=== PATIENT | male | born 1960 | race African-American/Black ===

== ENCOUNTER → 2016-11-21 | Outpatient (CLI) | payer OTHER ==
--- NOTE | 2016-11-22 02:03 | REP ---
Clinical: Left hip pain. Technique: AP and frog lateral views of the left hip. Findings: Advanced osteoarthritic degenerative changes include joint space narrowing, subchondral sclerosis/heterogeneity and cystic changes as well as marginal osteophyte formation involving both the proximal femur and iliac/acetabulum. No acute fracture dislocation. Impression: Advanced arthritic degenerative changes. Signed by Alex Villalpando MD 11/22/2016 01:54 A
== END ==
LOC: M RAD 09:51
PROVIDERS: ATTEND Surgery
DX: M16.12 Unilateral primary osteoarthritis, left hip (principal)

== ENCOUNTER → 2017-06-26 | Outpatient (CLI) | payer OTHER ==
--- NOTE | 2017-06-26 10:59 | REP ---
CT left hip without contrast 06/26/2017. Comparison: MRI pelvis without with contrast 05/17/2017, left hip x-ray 11/21/2016. Clinical history: Sclerotic lesion left iliac bone. Axial thin-section soft-tissue and bone window images through the left hip with coronal and sagittal bone window reconstructions provided. Findings: There is significant chondromalacia with [id number] appearance at the superior acetabulum subchondral cysts in the superior aspect femoral head and the acetabular roof with rim osteophytes at the acetabular roof and junction of the femoral head and neck. I see no visible or displaced fracture of the hip. The acetabulum is without an acute fracture . Sclerotic zone at the acetabular roof extends toward and has a small contiguous aspect with a larger sclerotic focus in the iliac bone just above the acetabulum. I do not see any definite periosteal reaction, expansion of bone, destruction of the medullary cavity or other acute finding related to this sclerotic lesion in the iliac bone. There is right SI joint sclerosis greater iliac and sacral side representing some sacral ileitis on that left side. Visualized left sacral ala and foramina were intact. No abnormal soft tissue calcifications are noted in the psoas or gluteus muscles. Obturator internus, hamstring and iliopsoas tendons grossly intact. There is a small calcific density adjacent to the acetabulum medially in the joint space suggesting small loose body with multiple lucencies as donor sites in the acetabulum and femoral head. No acute fracture. Old avulsion off the anterior superior margin of the acetabular roof. Impression: 1. Severe osteoarthritis with bone - on - bone appearance with chondromalacia grade 3 and with extensive sclerosis and subchondral cystic change acetabular roof. A smaller subchondral cyst and some sclerosis in the superior aspect of the femoral head. 2. Sclerotic focus in the medullary cavity of the iliac bone above this acetabular roof without expansion, periosteal reaction or destructive changes of bone by radiograph seven months ago this is unchanged. On MRI 6 weeks ago there was no abnormal enhancement, edema in the periosteal soft tissues and muscles nor other acute finding. Impression: 1. Advanced hip osteoarthritis with bone - on - bone appearance, severe chondromalacia and subchondral cystic and sclerotic destructive changes. 2. The sclerotic lesion in the inferior iliac bone just above the acetabular roof shows no destructive components, expansion of bone, cortical disruption or periosteal calcifications/ periosteal reaction. Findings most consistent with a nonaggressive lesion such as bone island or stress reaction. I would recommend followup with radiograph in the 6 months to document appearance at 1 year. Given the preponderance of acetabular roof and femoral head findings it is likely related to stress. Signed by Ganga Park MD 06/26/2017 08:28 P
== END ==
LOC: M RAD 09:05
PROVIDERS: ATTEND Surgery
DX: M17.12 Unilateral primary osteoarthritis, left knee (principal); M94.252 Chondromalacia, left hip

== ENCOUNTER → 2017-07-26 | Outpatient (CLI) | payer OTHER | LOC: M RAD 10:41 | DX: M85.9 Disorder of bone density and structure, unspecified (principal) | CPT/HCPCS: 78315 ==

== ENCOUNTER → 2018-02-10 | Outpatient (REF) | payer OTHER ==
[2018-02-10 08:37] LABS: HEMOGLOBIN 16.4 g/dl (13.5-17.5); MEAN CORPUSCULAR HEMOGLOBIN 30.7 pg (27.0-33.0); MEAN CORPUSCULAR HGB CONC 33.5 g/dl (32.0-36.5); MEAN CORPUSCULAR VOLUME 91.8 fl (80.0-96.0); PLATELET COUNT, AUTOMATED 241 10^3/uL (150-450); RED BLOOD COUNT 5.34 10^6/uL (4.30-6.10); RED CELL DISTRIBUTION WIDTH 13.4 % (11.5-14.5); WHITE BLOOD COUNT 9.7 10^3/uL (4.0-10.0)
[2018-02-10 08:43] LABS: ALBUMIN 3.9 GM/DL (3.2-5.2); ALKALINE PHOSPHATASE 89 U/L (45-117); ALT/SGPT 31 U/L (12-78); ANION GAP 4 MEQ/L (8-16); AST/SGOT 27 U/L (7-37); BILIRUBIN,TOTAL 0.4 MG/DL (0.2-1.0); BLOOD UREA NITROGEN 10 MG/DL (7-18); CALCIUM LEVEL 9.1 MG/DL (8.5-10.1); CARBON DIOXIDE LEVEL 35 MEQ/L (21-32); CHLORIDE LEVEL 104 MEQ/L (98-107); CREATININE FOR GFR 0.94 MG/DL (0.70-1.30); GLOMERULAR FILTRATION RATE > 60.0 (>56); GLUCOSE, FASTING 97 MG/DL (70-100); POTASSIUM SERUM 4.2 MEQ/L (3.5-5.1); SODIUM LEVEL 143 MEQ/L (136-145); TOTAL PROTEIN 7.8 GM/DL (6.4-8.2)
== END ==
LOC: M LAB REF 08:11
DX: Z01.818 Encounter for other preprocedural examination (principal)

== ENCOUNTER → 2018-02-11 | Outpatient (CLI) | payer OTHER | LOC: M RAD 08:47 | DX: Z01.818 Encounter for other preprocedural examination (principal); R91.8 Other nonspecific abnormal finding of lung field; M25.552 Pain in left hip | CPT/HCPCS: 71046 ==

== ENCOUNTER → 2018-02-13 | Outpatient (REF) | payer OTHER ==
[2018-02-13 20:32] LABS: INR 0.97
[2018-02-13 20:33] LABS: PARTIAL THROMBOPLASTIN TIME 31.8 SECONDS (25.4-37.6)
[2018-02-13 20:40] LABS: C REACTIVE PROTEIN QUANTITATIV 0.87 MG/DL (0.00-0.30)
[2018-02-13 21:09] LABS: ERYTHROCYTE SEDIMENTATION RATE 5 mm/hr (0-20)
== END ==
LOC: M LAB REF 09:15
DX: Z01.812 Encounter for preprocedural laboratory examination (principal)

== ENCOUNTER → 2018-02-26 | Outpatient (CLI) | payer OTHER ==
[~2018-02-26] MED LIST: ISOVUE-370 76% 100ML VIAL (Q9967) As Ordered
== END ==
LOC: M RAD 10:06
DX: J43.9 Emphysema, unspecified (principal); Z87.891 Personal history of nicotine dependence
CPT/HCPCS: Q9967